=== PATIENT | male | born 1980 | race Caucasian/White ===

== ENCOUNTER → 2020-10-31 14:04 | Outpatient (CLI) | payer OTHER, SELFPAY ==
--- NOTE | 2020-10-31 | DI.MRI.S_ITS ---
PROCEDURE: MR SHOULDER LT WO CON INDICATIONS: PAIN IN LEFT SHOULDER TECHNIQUE: Noncontrast oblique coronal T2 fast spin echo with fat saturation, oblique sagittal T1 spin echo and T2 fast spin echo with fat saturation, axial T1 spin echo and T2 fast spin echo with fat saturation through the shoulder. COMPARISON: Outside Film, CR, XR SHOULDER 2+ VIEWS LEFT, 10/11/2020, 12:43. FINDINGS: Image quality: Excellent. Rotator cuff: Tendinosis and low-grade bursal surface partial thickness tear involving distal supraspinatus extending to musculotendinous junction is seen. Distal infraspinatus and subscapularis tendons are intact. No full-thickness rotator cuff tendon rupture. Sagittal images demonstrate no significant muscle atrophy. Bones and bursae: There is marrow edema involving distal clavicle and a chromium with fluid distending acromioclavicular joint space and suggestion of disrupted acromioclavicular ligaments. Slight inferior subluxation of acromion in relation to distal clavicle is seen. No discrete fracture line is noted. Capsule and soft tissues: Labrum is grossly intact. Glenohumeral ligaments are intact. The long head of the biceps tendon demonstrates normal location and morphology. The rotator interval appears normal, without fibrosis. The coracohumeral ligament is normal in thickness. IMPRESSION: 1. Finding is consistent with moderate grade AC separation with at least partial-thickness tear of the joint capsule and moderate amount of joint fluid and surrounding soft tissue edema. 2. No fracture or mariana dislocation is seen. No other area of abnormal marrow signal. 3. Tendinosis and low-grade bursal surface partial thickness tear involving distal supraspinatus adjacent to acromioclavicular joint. No full-thickness rotator cuff tendon rupture. 4. No evidence of focal labral tear. Dictated by: Joshua Pederson M.D. on 10/31/2020 at 17:00 Approved by: Joshua Pederson M.D. on 10/31/2020 at 17:06
== END ==
PROVIDERS: Referring Provider Student in an Organized Health Care Education/Training Program; Visit Provider Student in an Organized Health Care Education/Training Program
DX: M25.512 Pain in left shoulder (principal); M75.112 Incomplete rotator cuff tear or rupture of left shoulder, not specified as traumatic
CPT/HCPCS: 73221